=== PATIENT | male | born 1960 | race Caucasian/White ===

== ENCOUNTER 2016-04-10 07:18 | Emergency (ER) | payer OTHER ==
[2016-04-10 07:31] VITALS: BP 136/96; PULSE 73; TEMP 97.8; BMI 28.5
[2016-04-10] MEDS ORDERED: diazePAM 2 MG TABLET PO ONE (07:47)
[2016-04-10] MEDS ORDERED: KETOROLAC TROMETHAMINE 60 MG/2 ML VIAL IM ONE (07:47)
--- NOTE | 2016-04-10 07:47 | PDOC ---
History of Present Illness - General Chief Complaint: Back Pain Stated Complaint: PAIN RT LEG Time Seen by Provider: 04/10/16 07:38 History Source: Patient, Old Records Exam Limitations: No Limitations - History of Present Illness Initial Comments: 04/10/16 07:48 56 year-old male with no significant past medical history presents to the ED with c/o right-sided lower back pain x 4 days. Thepain started 4 days after after he bent down to pick something up and felt a "tweak" in his lower back. The pain is described as dull and radiating down the lateral aspect of his right thigh. He denies paresthesias but the pain is worsened with ambulation and straightening of his leg. The patient has had prior LBP that is similar to this episode that was previously relieved with NSAIDs and heating pad. The patient saw the [facility] physician who reportedly did not prescribe him any medication so he went to an urgent care center yesterdday that prescribed him flexiril and naprosyn which he has taken without significant relief of the pain. He denies abdominal pain, nausea, vomiting, complaints. Past History - Travel Traveled outside of the country in the last 30 days: No Close contact w/someone who was outside of country & ill: No - Past Medical History Allergies/Adverse Reactions: Allergies Allergy/AdvReac Type Severity Reaction Status Date / Time No Known Allergies Allergy Unverified 04/10/16 07:20 Home Medications: Ambulatory Orders Cyclobenzaprine HCl [Flexeril -] 10 mg PO TID 04/10/16 Diazepam [Valium] 2 mg PO DAILY #10 tablet MDD 1 04/10/16 Ibuprofen [Advil -] 200 mg PO QID 04/10/16 Naproxen [Naprosyn -] 500 mg PO BID 04/10/16 Anemia: No Asthma: No Cancer: No Cardiac Disorders: No Hx Myocardial Infarction: No CVA: No COPD: No CHF: No DVT: No Dementia: No Diabetes: No Dialysis: No GI Disorders: No Disorders: No HTN: No Hypercholesterolemia: No HIV: No Kidney Stones: No Liver Disease: No Psychiatric Problems: No Suicide Attempt (Hx): No Seizures: No - Psycho/Social/Smoking Cessation Hx Anxiety: No Suicidal Ideation: No Smoking History: Never smoked Have you smoked in the past 12 months: No Information on smoking cessation initiated: No Hx Alcohol Use: No Drug/Substance Use Hx: No Review of Systems - Review of Systems Able to Perform ROS?: Yes Is the patient limited [place]ian proficient: No Constitutional: No: Symptoms Reported, See HPI, Chills, Diaphoresis, Fever, Loss of Appetite, Malaise, Night Sweats, Weakness, Weight Stable, Unintentional Wgt. Loss, Unexplained wgt Loss, Other HEENTM: No: Symptoms Reported Respiratory: No: Symptoms reported Cardiac (ROS): No: Symptoms Reported ABD/GI: No: Symptoms Reported : No: Symptoms Reported Musculoskeletal: Yes: See HPI, Back Pain, Muscle Pain Integumentary: No: Symptoms Reported Neurological: No: Symptoms reported, Numbness, Paresthesia, Weakness *Physical Exam - Vital Signs Last Vital Signs Temp Pulse Resp BP Pulse Ox 97.8 F 73 16 136/96 97 04/10/16 07:27 04/10/16 07:27 04/10/16 07:27 04/10/16 07:27 04/10/16 07:27 - Physical Exam Comments: 04/10/16 07:54 GENERAL: Well developed, well nourished. Awake and alert. No acute distress. HEENT: Normocephalic, atraumatic. PERRLA, EOMI. No conjunctival pallor. Sclera are non- icteric. Moist mucous membranes. Oropharynx is clear. NECK: Supple. Full ROM. No JVD. No lymphadenopathy. CARDIOVASCULAR: Regular rate and rhythm. No murmurs, rubs, or gallops. Distal pulses are 2+ and symmetric. PULMONARY: No evidence of respiratory distress. Lungs clear to auscultation bilaterally. No wheezing, rales or rhonchi. ABDOMINAL: Soft. Non-tender. Non-distended. No rebound or guarding. No organomegaly. Normoactive bowel sounds. MUSCULOSKELETAL Normal range of motion at all joints. No bony deformities or tenderness. No CVA tenderness. There is no tenderness to palpation of the thoracic or lumbar spine or paraspinal regions. There is tenderness to palpation of the right gluteal region with a possible trigger point. EXTREMITIES: No cyanosis. No clubbing. No edema. No calf tenderness. SKIN: Warm and dry. Normal capillary refill. No rashes. No jaundice. NEUROLOGICAL: Alert, awake, appropriate. Cranial nerves 2-12 intact. Grossly non-focal exam. Motor strength in the bilateral lower extremities is 5/5. PSYCHIATRIC: Cooperative. Good eye contact. Appropriate mood and affect. Medical Decision Making - Medical Decision Making 04/10/16 07:55 56 y/o male with h/o chronic LBP presents to the ED with c/o 4 day h/o right- sided lower back pain radiating into the right thigh. Differential diagnosis includes but isnot limited to: sciatica, muscle spasm, muscle strain. Plan: 1. Toradol and valium 2. Urine analysis 3. Observe and re-evaluate 04/10/16 08:58 addendum: The patient received Toradol and Valium with ome relief of his pain. The urine analysis is negative. I will discharge the raeann I have instructed the patient to take Valium 2 mg as needed for severe lower back pain. I have also instructed the patient to continue to take the Naprsyn as needed for pain. I have instructed the patient to follow-up with his primary care physician as scheduled at the end of the week and return to the emergency department if his symptoms persist, worsen, or new symptoms arise. *DC/Admit/Observation/Transfer Diagnosis at time of Disposition: Lower back pain Qualifiers: Chronicity: acute Back pain laterality: right Sciatica laterality: sciatica of right side - Discharge Dispostion Disposition: HOME Condition at time of disposition: Stable Admit: No - Prescriptions Prescriptions: Diazepam [Valium] 2 mg PO DAILY #10 tablet MDD 1 - Patient Instructions Printed Discharge Instructions: DI for Low Back Pain Additional Instructions: You may take the Naprosyn 500 mg 1 tablet twice daily as needed for the pain. For severe pain you may take Valium 2 mgone tablet daily. Please do not drive or operate heavy machinery while taking Valium as Valium may cause drowsiness. Please follow up with your prime physician as scheduled this week. You may return to the emergency department if your symptoms persist, worsen, or new symptoms arise.
[2016-04-10] MEDS ORDERED: KETOROLAC TROMETHAMINE 60 MG/2 ML VIAL ONE (07:51)
[2016-04-10] MEDS ORDERED: diazePAM 2 MG TABLET ONE (07:51)
[2016-04-10 08:41] LABS: PH,URINE 5.5 (4.5-8); URINE APPEARANCE Clear; URINE BILIRUBIN Negative (NEGATIVE); URINE BLOOD Negative (NEGATIVE); URINE GLUCOSE (UA) Negative (NEGATIVE); URINE KETONE Negative (NEGATIVE); URINE LEUK ESTERASE Negative (NEGATIVE); URINE NITRITE Negative (NEGATIVE); URINE PROTEIN Negative (NEGATIVE); URINE UROBILINOGEN 0.2 E.U/dl (0.2-1.0)
[2016-04-10 08:49] LABS: URINE COLOR YELLOW
== END 2016-04-10 09:08 | disposition home or self-care (01) ==
LOC: FER 07:18
PROC: 3E0333Z Introduction of Anti-inflammatory into Peripheral Vein, Percutaneous Approach (ICD-10-PCS; principal; 2016-04-10)
DX: M54.31 Sciatica, right side (principal)
CPT/HCPCS: 81003; 99282-25

== ENCOUNTER 2023-04-06 05:59 | Emergency (ER) | payer BC, OTHER ==
[2023-04-06 06:14] VITALS: BP 120/76; PULSE 69; RESP 20; TEMP 97.5; BMI 28.7
[2023-04-06] MEDS ORDERED: FAMOTIDINE 20 MG/50 ML IVPB 20 MG/50 ML MG IVPB ONE ×2 (06:24→06:34)
[2023-04-06] MEDS ORDERED: ACETAMINOPHEN 1000 MG/100 ML BAG IVPB ONE (06:24)
[2023-04-06] MEDS ORDERED: ACETAMINOPHEN INJECTION 100 ML IVPB ONE (06:34)
[2023-04-06] MEDS ORDERED: ONDANSETRON 4 MG/2 ML VIAL IVPB ONE (06:50)
[2023-04-06] MEDS ORDERED: ONDANSETRON 4 MG/2 ML VIAL ONE (06:53)
[2023-04-06] MEDS ORDERED: KETOROLAC TROMETHAMINE 30 MG/1 ML VIAL IVPUSH ONE (07:00)
[2023-04-06] MEDS ORDERED: KETOROLAC TROMETHAMINE 30 MG/1 ML VIAL ONE (07:00)
[2023-04-06] MEDS ORDERED: HALOPERIDOL LACTATE 5 MG/ML IM ONE (07:38)
[2023-04-06] MEDS ORDERED: HALOPERIDOL LACTATE 5 MG/ML ONE (07:41)
[2023-04-06 07:49] LABS: HEMATOCRIT 45.2 % (35.4-49); HEMOGLOBIN 15.2 G/dL (11.7-16.9); MCH 32.2 pg (25.7-33.7); MCHC 33.5 g/dl (32.0-35.9); PLATELET COUNT 194.6 10^3/uL (134-434); RBC 4.71 10^6/uL (4.00-5.60); RDW 13.5 % (11.9-15.9); WHITE BLOOD COUNT 4.6 10^3/uL (4.0-10.8)
[2023-04-06 08:21] LABS: ALBUMIN 4.4 g/dl (3.4-5.0); BILIRUBIN,TOTAL 0.7 mg/dl (0.2-1); CALCIUM 9.5 mg/dl (8.5-10.1); POTASSIUM 3.8 mmol/L (3.5-5.1); TOT PROT 6.9 g/dl (6.4-8.2)
[2023-04-06 09:50] LABS: PLATELET ESTIMATE ADEQUATE
== END 2023-04-06 10:52 | disposition home or self-care (01) ==
LOC: FER 05:59
PROC: 3E033GC Introduction of Other Therapeutic Substance into Peripheral Vein, Percutaneous Approach (ICD-10-PCS; principal; 2023-04-06)
PROC: 3E033NZ Introduction of Analgesics, Hypnotics, Sedatives into Peripheral Vein, Percutaneous Approach (ICD-10-PCS; 2023-04-06)
PROC: 3E033GC Introduction of Other Therapeutic Substance into Peripheral Vein, Percutaneous Approach (ICD-10-PCS; 2023-04-06)
PROC: 3E033GC Introduction of Other Therapeutic Substance into Peripheral Vein, Percutaneous Approach (ICD-10-PCS; 2023-04-06)
PROC: 3E023GC Introduction of Other Therapeutic Substance into Muscle, Percutaneous Approach (ICD-10-PCS; 2023-04-06)
DX: R10.13 Epigastric pain (principal)
CPT/HCPCS: 36415; 74019-TC-FY; 74177-TC; 76705-TC; 80053; 83690; 84484; 85027; 93005; 99285-25; Q9967